=== PATIENT | female | born 1965 | race Caucasian/White ===

== ENCOUNTER → 2018-12-07 | Day surgery (SDC) | payer BC ==
--- NOTE | 2018-12-10 12:02 | OP ---
DATE OF OPERATION: 12/07/2018 PREOPERATIVE DIAGNOSES: Left breast mass, 1 to 2 o'clock, 4 cm from the nipple; and right breast mass, 9 o'clock, 2 to 3 cm from the nipple. POSTOPERATIVE DIAGNOSES: Left breast mass, 1 to 2 o'clock, 4 cm from the nipple; and right breast mass, 9 o'clock, 2 to 3 cm from the nipple. PROCEDURES: Bilateral ultrasound-guided core biopsies with clip placement. ANESTHESIA: Local. ATTENDING SURGEON: Niecy Syed MD ESTIMATED BLOOD LOSS: Minimal. COMPLICATIONS: None. PROCEDURE: Patient was made aware of the risks and benefits of the procedure and consented. The left side was approached first. Under sterile conditions, with 1% lidocaine for local anesthesia, a small oswaldo was made in the skin. Using a 13-gauge suction biopsy device via lateral approach under ultrasound guidance, multiple cores were obtained and submitted to Pathology. Likewise under ultrasound guidance, a bowtie clip was placed into the biopsy region. Well tolerated by patient. Steri-Strip and sterile bandage was applied. Will contact her with results. Next, the right side was approached using a different setup and biopsy needle. Under sterile conditions, with 1% lidocaine for local anesthesia, a small oswaldo was made in the skin. Using a 13-gauge suction biopsy device via lateral approach under ultrasound guidance, multiple cores were obtained and submitted to Pathology. Likewise under ultrasound guidance, a bowtie clip was placed into the biopsy region. Well tolerated by patient. Steri-Strip and sterile bandage was applied. Will contact her with results. NIECY SYED M.D. [id number]
--- NOTE | 2018-12-10 14:31 | PATH ---
Surgical Pathology Report Patient Name: ROBEL CASTRO [facility] Rec. #: [id number] /Age/Gender: 1965 (Age: 53) / F Account: [id number] Location: Taken: 12/07/2018 Received: 12/07/2018 Reported: 12/10/2018 Physicians: Frakn Ribera M.D. Specimen(s) Received A: LEFT BREAST CORE BIOPSY 1-2 N4 B: RIGHT BREAST CORE BIOPSY 9N 2-3 Clinical History Palpable mass. Ultrasound findings: Highly suspicious/malignant Final Diagnosis A. BREAST, LEFT, 1-2:00, 4 CM FN, CORE BIOPSY: INVASIVE DUCTAL CARCINOMA, MODERATELY DIFFERENTIATED, MEASURING AT LEAST 1.1 CM IN GREATEST DIMENSION IN THIS MATERIAL. B. BREAST, RIGHT, 2-3:00, 9 CM FN, CORE BIOPSY: BENIGN BREAST TISSUE SHOWING STROMAL FIBROSIS. Results of ER, KS, Her2 & Ki67 studies will be reported separately in an addendum. Electronically Signed Asya Burt M.D. Addendum Reported: 12/11/2018 Addendum Diagnosis Results of ER and KS studies performed on block A2 at [facility] are as follows: ER (clone [id number] mouse monoclonal antibody by [employer]): > 95 % nuclear staining with strong intensity (Positive). KS (clone16 mouse monoclonal antibody by [employer]): > 95 % nuclear staining with strong intensity (Positive). Results of Her2 (IHC) & Ki-67 studies performed on block A2 at [place], [place] ([id number] ) are as follows: Her2 IHC (EP3 from [employer], formerly known as [id number], using [employer] Polymer Refine detection kit): 0 (Negative). Ki-67:30-35% (high proliferative index). Positive and negative controls (internal if applicable) show appropriate results. Formalin fixation and cold ischemic times are within current ASCO/CAP recommendations for ER, KS and Her2 testing. Asya Burt M.D. Gross Description A. Received in formalin, labeled "left breast 1-2 N4" are six cores of light barth tissue ranging from 0.5-1.2 cm in length with a diameter of up to 0.2 cm. Entirely submitted in two cassettes. B. Received in formalin, labeled "right breast 2-3 N9" are five cores of glistening white tissue, ranging from 0.8-1.4 cm in length with a diameter of up to 0.2 cm. Entirely submitted in one cassette.
== END | disposition home or self-care (01) ==
LOC: FRADUS-SUR 14:46
PROVIDERS: ATTEND Surgery Surgical Oncology
PROC: 0HBV3ZX Excision of Bilateral Breast, Percutaneous Approach, Diagnostic (ICD-10-PCS; principal; 2018-12-07)
DX: C50.412 Malignant neoplasm of upper-outer quadrant of left female breast (principal); N60.31 Fibrosclerosis of right breast; N63.21 Unspecified lump in the left breast, upper outer quadrant; N63.10 Unspecified lump in the right breast, unspecified quadrant
CPT/HCPCS: 19083; 87899; 88305-TC; 88342-TC; A4648